=== PATIENT | female | born 1950 | race Caucasian/White ===

== ENCOUNTER → 2017-11-04 15:39 | Outpatient (CLI) | payer BC, MEDICARE ==
[2013-04-25 10:31] VITALS: BMI 33.6
[~2017-11-04 15:39] MED LIST: ASPIRIN 81 MG E81 MG PO; BETAPACE 80 MG80 MG PO; LANOXIN250 MCG PO; NORVASC5 MG PO; SYNTHROID50 MCG PO; VITAMIN D50000 UNIT
== END | disposition home or self-care (01) ==
LOC: D.MAMMO 10-22 10:30 → D.US 10-22 11:30 → D.MAMMO 09:30
DX: R92.8 Other abnormal and inconclusive findings on diagnostic imaging of breast (principal)

== ENCOUNTER 2017-12-01 10:15 | Inpatient (IN) | payer BC, MEDICARE ==
[~2017-12-01] VITALS: Ht 167.6 cm; Wt 117.9 kg
--- NOTE | ~2017-12-01 | OP ---
PATIENT NAME: MERARI RONDON MEDICAL RECORD: [id number] :52 LOCATION:[id number] ADMISSION DATE:12/01/17 SURGEON: VITALY BAPTISTE MD DATE OF OPERATION: 12/01/2017 DATE OF OPERATION: 12/01/2017 PREOPERATIVE DIAGNOSES: 1. Right colon polyp. 2. Hypertension. 3. Asthma. 4. Arthritis. 5. Thyroid disease. POSTOPERATIVE DIAGNOSES: 1. Right colon polyp. 2. Hypertension. 3. Asthma. 4. Arthritis. 5. Thyroid disease. PROCEDURE: Hand-assisted laparoscopic right hemicolectomy. SURGEON: Vitaly Baptiste MD REPORT OF PROCEDURE: The patient's abdomen was prepped and draped in sterile fashion. A skin incision was made around the umbilicus. Electrocautery was used to dissect through the subcutaneous tissues. We entered the abdominal cavity. A Gelport was inserted with a 5-mm trocar within it. Through this, we were able to insufflate the abdomen. Under direct visualization, a 5 mm trocar was placed in the epigastrium and another was placed in the right subcostal region. The patient had a fairly mobile right colon. The white line of Toldt was taken down and we were able to mobilize the colon medially. The attachments of the appendix and small bowel were released followed by mobilization of the hepatic flexure. We continued this all the way around to the duodenum and released all attachments until we had good mobilization of the tissue. At this point, we eviscerated the bowel through the wound protector. The distal ileum was transected about 6 cm proximal to the terminal ileum using a 55 blue load JAYLYN stapler. We then transected the transverse colon just proximal to the middle colic vessels using a 55 blue load JAYLYN stapler. The mesentery was taken down with sequential clamp and tie technique with 2-0 silk. Eventually the entire specimen was sent off for permanent. The mass was palpable near the cecum. At this point, we performed a rtdf-st-qwdj anastomosis with a 55 blue load JAYLYN stapler and the enterotomies were closed with a 30 blue load TA stapler. We then oversewed the staple lines using Lemberted 3-0 silks. This piece of bowel and the anastomosis was placed back into the abdominal cavity and the omentum was placed over it. We then irrigated out the abdomen thoroughly with normal saline and assured there was no sign of any bleeding. At this point, the ports and insufflation were then removed. The midline fascia was closed with running #1 loop PDS times 2 and then irrigated out the wound and infused with a total of 10 mL of 0.25% Marcaine with epinephrine. The subcutaneous tissues were reapproximated with interrupted 3-0 Vicryls and the skin was closed with ruddy. COMPLICATIONS: None. OPERATIVE REPORT [id number] MERARI RONDON S CONDITION: Stable. ANESTHESIA: General endotracheal and local. BLOOD LOSS: Minimal. TRANSINT:[id number] Voice Confirmation ID: [id number] DOCUMENT ID: [id number] VITALY BAPTISTE MD at 1319 CC: EPHRAIM DEJESUS MD [id number] DICTATION DATE: 12/01/17 1356 FOUR SLIDE MACHINE SETTER: 12/01/17 1451 DIS IN 12/04/17 [id number] [place] [address]
--- NOTE | ~2017-12-01 | DS ---
PATIENT:MERARI RONDON :52 MEDICAL RECORD: [id number] DISCHARGE SUMMARY ADMISSION DATE: 12/01/17 DISCHARGE DATE: 12/04/17 DATE OF ADMISSION: 12/01/2017 DATE OF DISCHARGE: 12/04/2017 ADMISSION DIAGNOSES: 1. Right colon polyp. 2. Atrial fibrillation. 3. Morbid obesity. 4. Dyslipidemia. 5. Hypertension. 6. Asthma. 7. Arthritis. 8. Thyroid disease. DISCHARGE DIAGNOSES: 1. Right colon polyp. 2. Atrial fibrillation. 3. Morbid obesity. 4. Dyslipidemia. 5. Hypertension. 6. Asthma. 7. Arthritis. 8. Thyroid disease. PROCEDURE: Hand-assisted laparoscopic right hemicolectomy on 12/01/17. CONSULTATIONS: None. REPORT OF HOSPITALIZATION: The patient was admitted to the hospital after a successful hand-assisted laparoscopic right hemicolectomy. Postoperatively, the patient did very well. She had no complications and had a normal postoperative course. On postop day #2, she was started on a clear liquid diet, which she tolerated and was able to eventually be advanced to full liquid diet and on day of discharge was able to eat regular food. She was ambulating appropriately and her final path report showed no sign of any cancer being present. At that point, the patient was stable for discharge home. DISCHARGE INSTRUCTIONS: Return to clinic or call with any questions, concerns, fevers, chills, nausea, vomiting or worsening abdominal pain. ACTIVITIES: No heavy lifting or straining for 6 weeks postoperatively. FOLLOWUP: In clinic with me in 7-10 days. DISCHARGE MEDICATIONS: Resume home medications with the inclusion of Dilaudid 2 mg. TRANSINT:[id number] Voice Confirmation ID: [id number] DOCUMENT ID: [id number] DISCHARGE SUMMARY REPORT [id number] MERARI RONDON BIGG BAPTISTE MD at 0922 CC: [id number] DICTATION DATE: 01/05/18 1407 ACUTE SPECIALIST: 01/05/18 1437 DIS IN 12/04/17 [place] [id number]
[~2017-12-01 10:15] MED LIST changes: +ELIQUIS5 MG PO; +VITAMIN D3400 UNI1 PO; -VITAMIN D50000 UNIT
[2017-12-01 11:05] LABS: BASOPHILS 0.2 % (0-2); EOSINOPHILS 0.9 % (0-7); HEMATOCRIT 41.4 % (36.0-48.0); HEMOGLOBIN 13.3 g/dL (12-16); IMMATURE GRANULOCYTES 0.4 % (0-5); LYMPHOCYTES 30.5 % (15-50); MCH 29.4 pg (26.0-34.0); MCHC 32.1 g/dL (31.0-37.0); MCV 91.6 fL (80.0-100.0); MEAN PLATELET VOLUME 10.1 fL (7.4-10.4); MONOCYTES 8.8 % (2-11); NEUTROPHILS 59.2 % (40-80); PLATELET COUNT 264 10x3/uL (130-400); RBC 4.52 10x6/uL (4.00-5.40); RDW 13.4 % (11.5-14.5); WBC 10.3 10x3/uL (4.8-10.8)
[2017-12-01] MEDS ORDERED: COZAAR100 MG PO (11:15)
[2017-12-01] MEDS ORDERED: METOPROLOL TART25 MG PO (11:16)
[2017-12-01 11:22] LABS: CALC OSMOLALITY 276 mosm/kg (275-300); CALCIUM 9.8 mg/dL (8.5-10.1); CARBON DIOXIDE 32.3 mmol/L (21.0-32.0); CHLORIDE - SERUM 100 mmol/L (98-107); CREATININE - SERUM 0.8 mg/dL (0.6-1.3); GLUCOSE 97 mg/dL (74-106); POTASSIUM - SERUM 3.7 mmol/L (3.5-5.1); SODIUM 140 mmol/L (136-145); UREA NITROGEN 8 mg/dL (7-18); eGFR NON AFRICAN AMERICAN 76 mL/min (90-120)
[2017-12-01 11:26] VITALS: BP 147/79; BMI 41.4
[2017-12-01] MEDS ORDERED: HYDROCHLOROTHIA25 MG PO (11:30)
[2017-12-01] MEDS ORDERED: MULTI-DAY VITAM1 TAB PO (11:34)
[2017-12-01] MEDS ORDERED: SYSTANE 0.3-0.4%5 ML EACH EYE (11:35)
[2017-12-01] MEDS ORDERED: PROAIR HFA8.5 GM INH (11:42)
[2017-12-01 15:13] VITALS: BP 147/91
[2017-12-01 15:21] VITALS: BMI 42.0
[2017-12-01 15:30] VITALS: BP 147/91
[2017-12-01 15:46] VITALS: BP 144/88
[2017-12-01 21:30] VITALS: BP 133/82
[2017-12-02 01:10] VITALS: BP 124/78
[2017-12-02 04:36] VITALS: BP 134/76
[2017-12-02 05:33] LABS: BASOPHILS 0 % (0-2); EOSINOPHILS 0 % (0-7); HEMATOCRIT 40.2 % (36.0-48.0); HEMOGLOBIN 12.8 g/dL (12-16); IMMATURE GRANULOCYTES 0.4 % (0-5); LYMPHOCYTES 7.1 % (15-50); MCH 29.3 pg (26.0-34.0); MCHC 31.8 g/dL (31.0-37.0); MEAN PLATELET VOLUME 10.8 fL (7.4-10.4); MONOCYTES 7.2 % (2-11); NEUTROPHILS 85.3 % (40-80); PLATELET COUNT 267 10x3/uL (130-400); RBC 4.37 10x6/uL (4.00-5.40); RDW 13.5 % (11.5-14.5)
[2017-12-02 05:39] LABS: WBC 16.4 10x3/uL (4.8-10.8)
[2017-12-02 05:52] LABS: CALCIUM 8.9 mg/dL (8.5-10.1); CARBON DIOXIDE 29.6 mmol/L (21.0-32.0); CHLORIDE - SERUM 102 mmol/L (98-107); CREATININE - SERUM 0.8 mg/dL (0.6-1.3); GLUCOSE 131 mg/dL (74-106); SODIUM 139 mmol/L (136-145); eGFR NON AFRICAN AMERICAN 76 mL/min (90-120)
[2017-12-02 05:54] LABS: CALC OSMOLALITY 279 mosm/kg (275-300); POTASSIUM - SERUM 4.4 mmol/L (3.5-5.1); UREA NITROGEN 12 mg/dL (7-18)
[2017-12-02 08:45] VITALS: BP 170/85
[2017-12-02 12:37] VITALS: BP 146/85
[2017-12-02 15:01] VITALS: Ht 167.6 cm; Wt 117.9 kg
[2017-12-02 16:49] VITALS: BP 159/89
[2017-12-02 22:53] VITALS: BP 154/84
[2017-12-03 04:11] LABS: BASOPHILS 0.2 % (0-2); EOSINOPHILS 0.1 % (0-7); HEMATOCRIT 38.5 % (36.0-48.0); HEMOGLOBIN 11.8 g/dL (12-16); IMMATURE GRANULOCYTES 0.3 % (0-5); LYMPHOCYTES 22.3 % (15-50); MCH 29.3 pg (26.0-34.0); MCHC 30.6 g/dL (31.0-37.0); MEAN PLATELET VOLUME 10.7 fL (7.4-10.4); MONOCYTES 9.2 % (2-11); NEUTROPHILS 67.9 % (40-80); PLATELET COUNT 238 10x3/uL (130-400); RBC 4.03 10x6/uL (4.00-5.40); RDW 13.7 % (11.5-14.5)
[2017-12-03 04:13] LABS: MCV 95.5 fL (80.0-100.0)
[2017-12-03 04:26] LABS: CALC OSMOLALITY 278 mosm/kg (275-300); CALCIUM 8.7 mg/dL (8.5-10.1); CARBON DIOXIDE 32.5 mmol/L (21.0-32.0); CHLORIDE - SERUM 104 mmol/L (98-107); CREATININE - SERUM 0.7 mg/dL (0.6-1.3); GLUCOSE 85 mg/dL (74-106); SODIUM 140 mmol/L (136-145); UREA NITROGEN 15 mg/dL (7-18); eGFR NON AFRICAN AMERICAN 89 mL/min (90-120)
[2017-12-03 04:51] VITALS: BP 153/86
[2017-12-03 08:50] VITALS: BP 143/86
[2017-12-03 12:35] VITALS: BP 185/86
[2017-12-03 16:22] VITALS: BP 165/95
[2017-12-03 22:13] VITALS: BP 177/96
[2017-12-04 01:16] VITALS: BP 151/86
[2017-12-04 05:14] VITALS: BP 159/104
[2017-12-04 08:19] VITALS: BP 135/84
[2017-12-04 12:34] VITALS: BP 139/88
[2017-12-04] MEDS ORDERED: DILAUDID2 MG PO (14:23)
== END 2017-12-04 17:22 | disposition home or self-care (01) | DRG 331 ==
LOC: D.MS 10:15 → D.SDCHOLD 10:15 → D.MS 14:31 → D.SDCHOLD 16:30 → D.MS 12-04 17:22
PROVIDERS: Surgery
PROC: 0DTF0ZZ Resection of Right Large Intestine, Open Approach (ICD-10-PCS; principal; 2017-12-01 13:00)
DX: D12.0 Benign neoplasm of cecum (principal); I10 Essential (primary) hypertension; J45.909 Unspecified asthma, uncomplicated; M19.90 Unspecified osteoarthritis, unspecified site